=== PATIENT | female | born 1945 | race Hispanic/Latino ===

== ENCOUNTER 2017-09-22 15:24 | Observation (INO) | payer MEDICARE, BC ==
[2017-09-22] MEDS ORDERED: Albuterol-Ipratrop 3 mg / 0.5 (3 ml) UD IH STA (16:27)
--- NOTE | 2017-09-22 16:43 | RAD ---
Date of service: 09/22/2017 HISTORY: cough, shortness of breath COMPARISON: No prior. FINDINGS: LUNGS: No active pulmonary disease. PLEURA: No significant pleural effusion identified, no pneumothorax apparent. CARDIOVASCULAR: Normal. OSSEOUS STRUCTURES: No significant abnormalities. VISUALIZED UPPER ABDOMEN: Normal. OTHER FINDINGS: None. IMPRESSION: No active disease.
--- NOTE | 2017-09-22 16:44 | ED PDOC ---
Arrival/HPI - General Chief Complaint: Shortness Of Breath Time Seen by Provider: 09/22/17 16:17 Historian: Patient - History of Present Illness Narrative History of Present Illness (Text): 09/22/17 18:21 Patient is a 72 yo female, reports that she is a daily smoker, presents to the Emergency Department complaining of nasal congestion for past four days, now associated with cough that has progressively worsened over the past two days. Reports productive sputum. Denies hemoptysis. Denies chest pain with exertion but reports pain in chest with coughing. Also states she has had cramping to her legs over the past several days. Denies calf pain or swelling. Denies abdominal pain. Denies nausea or vomiting. Time/Duration: Prior to Arrival, < week Symptom Onset: Gradual Past Medical History - Infectious Disease Hx of Infectious Diseases: None - Psychiatric Hx Substance Use: No - Surgical History Hx Cholecystectomy: Yes Family/Social History Family/Social History: Unknown Family HX Smoking Status: Heavy Smoker > 10 Cigarettes Daily Hx Alcohol Use: No Hx Substance Use: No Allergies/Home Meds Allergies/Adverse Reactions: Allergies No Known Allergies Allergy (Verified 09/22/17 16:19) Home Medications: Home Meds Medication Instructions Recorded Confirmed No Known Home Med 09/22/17 09/22/17 Review of Systems - Review of Systems Constitutional: Fatigue. absent: Weight Change, Fevers Eyes: absent: Vision Changes ENT: Voice Changes, Sore Throat, Rhinorrhea, Sinus Congestion. absent: Hearing Changes, Epistaxis Respiratory: SOB, Cough, Sputum Cardiovascular: absent: Chest Pain, Palpitations, Edema, Calf Pain, [place] Gastrointestinal: absent: Abdominal Pain, Nausea Genitourinary Female: absent: Dysuria Musculoskeletal: absent: Back Pain Skin: absent: Rash Neurological: absent: Headache, Dizziness, Focal Weakness, Seizure Endocrine: absent: Polyuria Hemo/Lymphatic: absent: Easy Bleeding Psychiatric: absent: Depression Physical Exam Vital Signs Reviewed: Yes Vital Signs Temp Pulse Resp BP Pulse Ox 09/22/17 21:49 98.2 F 71 18 127/60 95 09/22/17 21:13 78 18 127/60 97 09/22/17 18:54 75 18 134/69 100 09/22/17 16:30 18 09/22/17 16:16 99.3 F 100 H 18 132/75 92 L Temperature: Afebrile Pulse: Regular Appearance: Positive for: Non-Toxic Pain Distress: Mild Mental Status: Positive for: Alert and Oriented X 3 - Systems Exam Head: Present: Atraumatic Pupils: Present: PERRL Extroacular Muscles: Present: EOMI Ears: No: Erythema Mouth: Present: Moist Mucous Membranes. No: Drooling, Normal Lips Pharnyx: Present: ERYTHEMA. No: EXUDATE, TONSILS ENLARGED, Uvular Deviation Nose (Internal): Present: Normal Inspection, No Active Bleeding Neck: Present: Normal Range of Motion. No: Meningeal Signs Respiratory/Chest: Present: Wheezes. No: Respiratory Distress, Rhonchi Cardiovascular: Present: Regular Rate and Rhythm, Murmurs Abdomen: No: Tenderness, Distention Back: No: CVA Tenderness Upper Extremity: No: Edema Lower Extremity: Present: Neurovascularly Intact. No: Edema, CALF TENDERNESS Neurological: Present: Motor Func Grossly Intact, Normal Sensory Function Skin: Present: Warm Psychiatric: Present: Alert, Normal Insight, Normal Concentration Medical Decision Making ED Course and Treatment: 09/22/17 17:15 Patient with history of increasing cough for past 4 days. She is hypoxic on exam. She however is not in respiratory distress but has mild diffuse wheezing. Nebulizer ordered. Chest X-ray Dictated By: Polo Lagos MD Date Signed: 09/22/17 1641 IMPRESSION: No active disease. 09/22/17 18:33 Patient has no chest pain with exertion. Initial ddimer and troponin unremarkable. Patient has no calf edema noted. No ocp use. No known hx of cancer. No hx of prolonged immobilization. Patient with no fever or hempotysis. No prior records or EKG available, although patient with no exertional chest pain. Daughter present, supplements history. States she has PMD in her hometown and will follow-up. Ultrasound pending. LIMITATIONS OF CHEST XRAY and labs reviewed. Risks of smoking and cancer reviewed with patient and family. 09/22/17 18:51 Preliminary ultrasound report negative for DVT. 09/22/17 19:17 Treatment plan reviewed with patient and daughter. Nebulizers ordered. Case endorsed to Dr. Landry at 1900 on 09/22/17 for re-evaluation, dispostion , - Lab Interpretations Microbiology Results: Microbiology Results 09/22/17 17:45 Blood Blood Culture - Preliminary NO GROWTH AFTER 24 HOURS 09/22/17 17:25 Blood Blood Culture - Preliminary NO GROWTH AFTER 24 HOURS Lab Results: 09/22/17 17:25 09/22/17 17:25 Lab Results 09/22/17 20:24: Urine Color Yellow, Urine Appearance Clear, Urine pH 6.0, Ur Specific [place] 1.010, Urine Protein Negative, Urine Glucose (UA) Negative, Urine Ketones Negative, Urine Blood Trace-intact H, Urine Nitrate Negative, Urine Bilirubin Negative, Urine Urobilinogen 0.2, Ur Leukocyte Esterase Negative , Urine RBC 1 - 3, Urine WBC 0 - 2, Ur Epithelial Cells 0 - 2 09/22/17 19:56: pCO2 46 H, pO2 92.0, HCO3 29.2 H, ABG pH 7.41, ABG Total CO2 30.6 H, ABG O2 Saturation 99.1 H, ABG O2 Content 16.4, ABG Base Excess 3.9 H, ABG Hemoglobin 12.1, ABG Carboxyhemoglobin 2.5 H, POC ABG HHb (Measured) 0.9, ABG Methemoglobin 1.0, ABG O2 Capacity 16.5, Hgb O2 Saturation 95.6, FiO2 21.0 09/22/17 17:25: Sodium 141, Potassium 3.7, Chloride 98, Carbon Dioxide 31, Anion Gap 16, BUN 8, Creatinine 0.7, Est GFR ( Amer) > 60, Est GFR (Non- Af Amer) > 60, Random Glucose 110, Calcium 9.4, Total Bilirubin 0.5, AST 29, ALT 23, Alkaline Phosphatase 70, Lactate Dehydrogenase 569, Total Creatine Kinase 90, Troponin I < 0.01, NT-Pro-B Natriuret Pep 128, Total Protein 8.3, Albumin 4.9 H, Globulin 3.3, Albumin/Globulin Ratio 1.5 09/22/17 17:25: PT 11.6, INR 1.00, APTT 29.4, D-Dimer, Quantitative 231 09/22/17 17:25: WBC 7.7, RBC 4.58, Hgb 13.6, Hct 40.3, MCV 88.0, MCH 29.7, MCHC 33.7, RDW 13.4, Plt Count 246, MPV 9.2, Gran % 72.8 H, Lymph % (Auto) 16.7 L, [place] % (Auto) 7.6 H, Eos % (Auto) 2.5, Baso % (Auto) 0.4, Gran # 5.64, Lymph # ( Auto) 1.3, [place] # (Auto) 0.6, Eos # (Auto) 0.2, Baso # (Auto) 0.03 - RAD Interpretation Radiology Orders: 09/22/17 16:25 CHEST PORTABLE [RAD] Stat 09/22/17 16:26 DUPLEX LOWER EXTRM VEIN BILAT [US] Stat [employer] Assistant Manager: Radiologist - EKG Interpretation EKG Interpretation (Text): 09/22/17 18:30 EKG at 17:47 normal sinus rhythm rate of 83, anteroseptal infarct, age undetermined Interpreted by ED Physician: Yes Type: 12 lead EKG - Medication Orders Current Medication Orders: Acetaminophen (Tylenol 325mg Tab) 650 mg PO Q6H PRN PRN Reason: Fever >100.4 F Albuterol/Ipratropium (Duoneb 3 Mg/0.5 Mg (3 Ml) Ud) 3 ml IH Q4H PRN PRN Reason: Shortness of Breath Azithromycin (Zithromax) 250 mg PO DAILY PAYAL PRN Reason: Protocol Last Admin: 09/23/17 12:19 Dose: 250 mg Guaifenesin/Dextromethorphan (Robitussin Dm) 5 ml PO Q6H PAYAL Last Admin: 09/24/17 05:40 Dose: 5 ml Ceftriaxone Sodium (Rocephin 1 Gram Ivpb) 1 gm in 100 mls @ 100 mls/hr IVPB DAILY PAYAL PRN Reason: Protocol Levalbuterol HCl (Xopenex) 0.63 mg IH [id number] [facility] Last Admin: 09/24/17 07:44 Dose: 0.63 mg Methylprednisolone (Solu-Medrol) 30 mg IV Q8H PAYAL Last Admin: 09/24/17 05:40 Dose: 30 mg eMAR Start Stop Document 09/24/17 05:40 CDE (Rec: 09/24/17 05:40 CDE [id number]) Intravenous Solution Start Date 09/24/17 Start Time 05:40 End Date 09/24/17 End time 05:40 Total Infusion Time 0 Ondansetron HCl (Zofran Inj) 4 mg IVP Q6H PRN PRN Reason: Nausea/Vomiting Discontinued Medications Albuterol/Ipratropium (Duoneb 3 Mg/0.5 Mg (3 Ml) Ud) 3 ml IH STAT STA Stop: 09/22/17 16:28 Last Admin: 09/22/17 19:14 Dose: Albuterol/Ipratropium (Duoneb 3 Mg/0.5 Mg (3 Ml) Ud) 3 ml IH Q15M PAYAL Stop: 09/22/17 19:31 Last Admin: 09/22/17 19:55 Dose: 3 ml Ceftriaxone Sodium (Rocephin 1 Gram Ivpb) 1 gm in 100 mls @ 200 mls/hr IV ONCE STA PRN Reason: Protocol Stop: 09/22/17 21:23 Last Admin: 09/22/17 21:39 Dose: 200 mls/hr eMAR Start Stop Document 09/22/17 21:39 HI (Rec: 09/22/17 21:40 [email or web address] Intravenous Solution Start Date 09/22/17 Start Time 21:40 Azithromycin (Zithromax 500mg In Ns) 500 mg in 250 mls @ 166.667 mls/hr IV STAT STA PRN Reason: Protocol Stop: 09/22/17 22:23 Last Admin: 09/22/17 22:27 Dose: 166.667 mls/hr eMAR Start Stop Document 09/22/17 22:27 CDE (Rec: 09/22/17 22:27 CDE [id number]) Intravenous Solution Start Date 09/22/17 Start Time 22:27 End Date 09/22/17 End time 23:57 Total Infusion Time 90 Methylprednisolone (Solu-Medrol) 125 mg IVP ONCE ONE Stop: 09/22/17 21:03 Last Admin: 09/22/17 21:39 Dose: 125 mg IVP Administration Document 09/22/17 21:39 HI (Rec: 09/22/17 21:39 [email or web address] Charges for Administration # of IVP Administrations 1 Disposition/Present on Arrival - Present on Arrival Any Indicators Present on Arrival: No History of DVT/PE: No History of Uncontrolled Diabetes: No Urinary Catheter: No History of Decub. Ulcer: No History Surgical Site Infection Following: None - Disposition Have Diagnosis and Disposition been Completed?: Yes Diagnosis: COPD exacerbation Disposition: HOSPITALIZED Disposition Time: 19:00 Patient Plan: Admission Patient Problems: Current Active Problems Problem Status Onset COPD exacerbation Acute Condition: STABLE
[2017-09-22 17:57] LABS: BASO # 0.03 K/mm3 (0.0-2.0); BASO % 0.4 % (0.0-3.0); EOS # 0.2 (0.0-0.7); EOS % 2.5 % (1.5-5.0); GRAN # 5.64 (1.4-6.5); GRAN % 72.8 % (50.0-68.0); HEMOGLOBIN 13.6 g/dL (12.0-16.0); LYMPH # 1.3 (1.2-3.4); LYMPH % 16.7 % (22.0-35.0); MEAN CORPUSCULAR HEMOGLOBIN 29.7 pg (25.0-35.0); MEAN CORPUSCULAR HGB CONC 33.7 g/dl (31.0-37.0); MEAN PLATELET VOLUME 9.2 fl (7.0-11.0); MONO # 0.6 (0.1-0.6); MONO % 7.6 % (1.0-6.0); RBC 4.58 10^6/uL (3.5-6.1); RED CELL DISTRIBUTION WIDTH 13.4 % (11.5-14.5); WHITE BLOOD COUNT 7.7 10^3/ul (4.5-11.0)
[2017-09-22 18:02] LABS: ALB/GLOB RATIO 1.5 (1.1-1.8); ALBUMIN 4.9 g/dL (3.0-4.8); ALT/SGPT 23 U/L (7-56); AST/SGOT 29 U/L (14-36); BLOOD UREA NITROGEN 8 mg/dL (7-21); CALCIUM 9.4 mg/dL (8.4-10.5); GFR AFRICAN-AMERICAN > 60; GFR NON-AFRICAN AMERICAN > 60
[2017-09-22 18:08] LABS: PARTIAL THROMBOPLASTIN TIME 29.4 Seconds (25.1-36.5); PROTHROMBIN TIME 11.6 SECONDS (9.4-12.5)
[2017-09-22 18:14] LABS: B-TYPE NATRIURETIC PEPTIDE 128 pg/mL (0-450); TROPONIN I < 0.01 ng/mL
[2017-09-22] MEDS: Albuterol-Ipratrop 3 mg / 0.5 (3 ml) UD IH SCH ×3 (19:14→19:55)
[2017-09-22 19:59] LABS: ARTERIAL BLOOD GAS HCO3 29.2 mmol/L (21-28); ARTERIAL BLOOD GAS HEMOGLOBIN 12.1 g/dL (11.7-17.4); ARTERIAL BLOOD GAS O2 CAPACITY 16.5 mL/dl (16-24); ARTERIAL BLOOD GAS O2 CONTENT 16.4 ML/dl (15-23); ARTERIAL BLOOD GAS O2 SAT 99.1 % (95-98); ARTERIAL BLOOD GAS PCO2 46 mm/Hg (35-45); ARTERIAL BLOOD GAS PH 7.41 (7.35-7.45); ARTERIAL BLOOD GAS TCO2 30.6 mmol.L (22-28)
--- NOTE | 2017-09-22 20:08 | ED PDOC ---
Physical Exam Vital Signs Reviewed: Yes Vital Signs Temp Pulse Resp BP Pulse Ox 09/22/17 18:54 75 18 134/69 100 09/22/17 16:30 18 09/22/17 16:16 99.3 F 100 H 18 132/75 92 L Temperature: Afebrile Blood Pressure: Normal Pulse: Tachycardic Respiratory Rate: Normal Appearance: Positive for: Well-Appearing, Non-Toxic, Comfortable Pain Distress: None Mental Status: Positive for: Alert and Oriented X 3 Medical Decision Making ED Course and Treatment: 09/22/17 19:32: Case endorsed to me by Dr. Duncan. Patient presented to the emergency department complaining of cough, chest discomfort when coughing, and low O2 saturation. Patient was evaluated with labs EKG, Chest X-ray all of which were negative. Patient currently receiving nebulizer treatments. I was asked to reassess patient following treatment. Patient is not experiencing any shortness of breath currently. 09/22/17 21:[address] Mcgee who is aware and agrees with the plan. Accepts patient into her service to be admitted for further management. Nebulizer treatment, steroids, and antibiotics given. - Lab Interpretations Lab Results: 09/22/17 17:25 09/22/17 17:25 Lab Results 09/22/17 20:24: Urine Color Yellow, Urine Appearance Clear, Urine pH 6.0, Ur Specific [place] 1.010, Urine Protein Negative, Urine Glucose (UA) Negative, Urine Ketones Negative, Urine Blood Trace-intact H, Urine Nitrate Negative, Urine Bilirubin Negative, Urine Urobilinogen 0.2, Ur Leukocyte Esterase Negative , Urine RBC Pending, Urine WBC Pending 09/22/17 19:56: pCO2 46 H, pO2 92.0, HCO3 29.2 H, ABG pH 7.41, ABG Total CO2 30.6 H, ABG O2 Saturation 99.1 H, ABG O2 Content 16.4, ABG Base Excess 3.9 H, ABG Hemoglobin 12.1, ABG Carboxyhemoglobin 2.5 H, POC ABG HHb (Measured) 0.9, ABG Methemoglobin 1.0, ABG O2 Capacity 16.5, Hgb O2 Saturation 95.6, FiO2 21.0 09/22/17 17:25: Sodium 141, Potassium 3.7, Chloride 98, Carbon Dioxide 31, Anion Gap 16, BUN 8, Creatinine 0.7, Est GFR ( Amer) > 60, Est GFR (Non- Af Amer) > 60, Random Glucose 110, Calcium 9.4, Total Bilirubin 0.5, AST 29, ALT 23, Alkaline Phosphatase 70, Lactate Dehydrogenase 569, Total Creatine Kinase 90, Troponin I < 0.01, NT-Pro-B Natriuret Pep 128, Total Protein 8.3, Albumin 4.9 H, Globulin 3.3, Albumin/Globulin Ratio 1.5 09/22/17 17:25: PT 11.6, INR 1.00, APTT 29.4, D-Dimer, Quantitative 231 09/22/17 17:25: WBC 7.7, RBC 4.58, Hgb 13.6, Hct 40.3, MCV 88.0, MCH 29.7, MCHC 33.7, RDW 13.4, Plt Count 246, MPV 9.2, Gran % 72.8 H, Lymph % (Auto) 16.7 L, [place] % (Auto) 7.6 H, Eos % (Auto) 2.5, Baso % (Auto) 0.4, Gran # 5.64, Lymph # ( Auto) 1.3, [place] # (Auto) 0.6, Eos # (Auto) 0.2, Baso # (Auto) 0.03 - RAD Interpretation Radiology Orders: 09/22/17 16:25 CHEST PORTABLE [RAD] Stat 09/22/17 16:26 DUPLEX LOWER EXTRM VEIN BILAT [US] Stat - Medication Orders Current Medication Orders: Albuterol/Ipratropium (Duoneb 3 Mg/0.5 Mg (3 Ml) Ud) 3 ml IH Q4H PRN PRN Reason: Shortness of Breath Ceftriaxone Sodium (Rocephin 1 Gram Ivpb) 1 gm in 100 mls @ 200 mls/hr IV ONCE STA PRN Reason: Protocol Stop: 09/22/17 21:23 Azithromycin (Zithromax 500mg In Ns) 500 mg in 250 mls @ 166.667 mls/hr IV STAT STA PRN Reason: Protocol Stop: 09/22/17 22:23 Methylprednisolone (Solu-Medrol) 125 mg IVP ONCE ONE Stop: 09/22/17 21:03 Discontinued Medications Albuterol/Ipratropium (Duoneb 3 Mg/0.5 Mg (3 Ml) Ud) 3 ml IH STAT STA Stop: 09/22/17 16:28 Last Admin: 09/22/17 19:14 Dose: Albuterol/Ipratropium (Duoneb 3 Mg/0.5 Mg (3 Ml) Ud) 3 ml IH Q15M PAYAL Stop: 09/22/17 19:31 Last Admin: 09/22/17 19:45 Dose: 3 ml - Scribe Statement The provider has reviewed the documentation as recorded by the Jesus Burnett Provider Scribe Attestation: All medical record entries made by the Scribe were at my direction and personally dictated by me. I have reviewed the chart and agree that the record accurately reflects my personal performance of the history, physical exam, medical decision making, and the department course for this patient. I have also personally directed, reviewed, and agree with the discharge instructions and disposition. Disposition/Present on Arrival - Present on Arrival Any Indicators Present on Arrival: No History of DVT/PE: No History of Uncontrolled Diabetes: No Urinary Catheter: No History of Decub. Ulcer: No History Surgical Site Infection Following: None - Disposition Have Diagnosis and Disposition been Completed?: Yes Diagnosis: COPD exacerbation Disposition: HOSPITALIZED Disposition Time: 21:08 Patient Problems: Current Active Problems Problem Status Onset COPD exacerbation Acute Condition: FAIR Referrals: Naman Edward MD [Primary Care Provider] - Follow up with primary Forms: [employer] ([place])
[2017-09-22 20:51] LABS: URINE BILIRUBIN NEGATIVE (NEGATIVE); URINE BLOOD TRACE-INTACT (NEGATIVE); URINE GLUCOSE (UA) NEGATIVE (NEGATIVE); URINE LEUKOCYTE ESTERASE NEGATIVE Leu/uL (NEGATIVE); URINE PROTEIN NEGATIVE mg/dL (<30 mg/dL); URINE UROBILINOGEN 0.2 E.U./dL (<1 E.U./dL)
[2017-09-22 20:52] LABS: URINE APPEARANCE CLEAR (CLEAR); URINE COLOR YELLOW (YELLOW)
[2017-09-22] MEDS ORDERED: Azithromycin 500MG/NS 250ml 500 MG/250 ML BAG IV STA (20:54)
[2017-09-22] MEDS ORDERED: cefTRIAXone 1 gm 1 GM/100 ML BAG IV STA (20:54)
[2017-09-22] MEDS ORDERED: Albuterol-Ipratrop 3 mg / 0.5 (3 ml) UD IH PRN (21:05)
[2017-09-22 21:24] LABS: URINE EPITHELIAL CELLS 0 - 2 /hpf (0-5); URINE WBC 0 - 2 /hpf (0-6)
[2017-09-23] MEDS: MethylPREDNISolone 40 mg Vial IV SCH ×2 (12:19→21:16)
[2017-09-23] MEDS: guaiFENesin DM 100 mg-10 mg/5 ml UD PO SCH ×2 (12:19→18:06)
[2017-09-23] MEDS: Levalbuterol 0.63 MG/3 ML Inhal Soln UD IH SCH ×2 (13:24→19:24)
--- NOTE | 2017-09-23 14:34 | US ---
HISTORY: Leg pain and swelling. Evaluate for DVT PHYSICIAN(S): Daniel Curtis MD. TECHNIQUE: Duplex sonography and color-flow Doppler with graded compression were used to evaluate the deep venous systems of both lower extremities. FINDINGS: The visualized deep venous systems of both lower extremities are sonographically normal and compressible. Normal wave forms and augmentation are seen. There is no sonographic evidence for deep venous thrombosis in the visualized segments of both lower extremities. IMPRESSION: No sonographic evidence for deep venous thrombosis in the visualized segments of both lower extremities.
--- NOTE | 2017-09-23 16:02 | HP ---
DATE OF EXAM: 09/23/2017 HISTORY OF PRESENT ILLNESS: This 72-year-old female was examined at her bedside on the cardiac [place] in the presence of her daughter, Kristy, and grandson, Andrea. This case was reviewed in detail with her nurse, Barbra Hernandez, registered nurse. The patient presents to the [facility] ER with a 3-to 4-day complaint of shortness of breath, cough, and yellow productive sputum. She was seen earlier last evening at a local urgent care center where they recommended she come to the [facility] ER for further evaluation of shortness of breath, hypoxemia, and low O2 sats. The patient in the Emergency Room complained of bilateral lower leg cramping and pain, underwent venous Dopplers of both lower extremities, which were negative for DVT and had a negative D-dimer study. She was complaining of cough and shortness of breath, was given dual nebulizer therapy and IV Solu-Medrol; however, she was still noted to be wheezing and was admitted for further evaluation of the above. On questioning of this patient, SHE DENIES ANY ALLERGIES TO MEDICATION. She states she takes no chronic medication and has no chronic illnesses. She states she is a one-pack per day cigarette smoker for many years and is status post appendectomy in her distant past. FAMILY HISTORY: None significant. SOCIAL HISTORY: She is a smoker, non drinker, no IV drug misuse. 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 HEAD: No headache or seizure. EYES: No change in visual acuity. EARS: No hearing loss. THROAT: No swallowing difficulty. NECK: No stiffness. CARDIAC: No chest pain or palpitation. PULMONARY: She had a cough with yellow productive sputum and had expiratory wheezing. GASTROINTESTINAL: No hematemesis. No melena. GENITOURINARY: No dysuria. SKIN: No rash. VASCULAR: No claudication. PSYCHOLOGICAL: No anxiety. NEUROLOGICAL: No knowledge of stroke. PHYSICAL EXAMINATION: VITAL SIGNS: She was in a normal sinus rhythm on the qa intern with a temperature of 98.1, respirations 17, pulse 75, and blood pressure 135/71. Pulse ox 98% on 2 liters nasal O2. HEENT: Head: Normocephalic, atraumatic. Eyes: No icterus. Ears: Clear. Throat: Noninjected. NECK: Supple. HEART: Regular S1, S2. No pathological rubs, murmurs, or gallops. LUNGS: With expiratory wheezing throughout both posterior lung andres. Occasional rhonchi that cleared with coughing. ABDOMEN: Soft. No palpable organomegaly. EXTREMITIES: No clubbing, no cyanosis, no edema. SKIN: Without rash. NEUROLOGICAL: Intact. PSYCHOLOGICAL: Alert and oriented x3. NEUROLOGIC: Grossly intact. LABORATORY DATA: White count 7700, hemoglobin 13.6, hematocrit 40.3, platelets 246,000. PT/INR 1, PTT 29.4. D-dimer 231 which is within normal limits. Sodium 141, K 3.7, chloride 98, bicarb 31, BUN 8, creatinine 0.7, random blood sugar 110, calcium 9.4. Bilirubin 0.5, AST 29, ALT , alkaline phosphatase 70. CPK 90. Troponin less than 0.01. Urinalysis was unremarkable. Chest x-ray was reviewed. It showed no active pulmonary disease, no pleural effusion, no pulmonary infiltrate, no congestive heart failure, heart size normal. EKG reportedly showed normal sinus rhythm. Venous Dopplers reportedly showed no evidence of DVT. IMPRESSION: A 72-year-old female with asthmatic bronchitis, rule out exacerbation of chronic obstructive pulmonary disease with strong history of cigarette smoking. PLAN: As discussed with the patient, daughter, grandson, and nursing, will be to await blood and urine culture that have been sent and to continue Robitussin DM 5 mL p.o. every 6 hours, Rocephin 1 g IV every 24 hours, Solu-Medrol 30 mg IV every 8 hours, Xopenex inhalational therapy 0.63 mg every 6 hours, Zithromax 250 mg p.o. daily, Zofran 4 mg IV every 6 hours p.r.n. nausea or vomiting, and Tylenol 650 p.o. every 6 hours p.r.n. temperature greater than 101. She continues on 2 liters nasal O2. She is ordered to have a heart-healthy diet. She is encouraged to ambulate with family and as discussed with the patient and family at bedside when she is oxygenating adequately and no longer wheezing, she will be switched to oral agents and then followed as an outpatient. Greater than 75 minutes was spent in the care, management, review of labs, orders, x-rays, and discussion of this patient with nursing, family, herself, and emergency room physicians. She was given smoking cessation counselling. All questions were answered. Kay Mcgee MD [email or web address]
--- NOTE | 2017-09-23 17:11 | CARD ---
APPROVED REPORT Date of service: 09/22/2017 EKG Measurement Heart [id number] <Conclusion> Normal sinus rhythm Possible Left atrial enlargement Anteroseptal infarct, age undetermined Abnormal ECG
[2017-09-24] MEDS: guaiFENesin DM 100 mg-10 mg/5 ml UD PO SCH ×3 (00:40→11:51)
[2017-09-24] MEDS: Levalbuterol 0.63 MG/3 ML Inhal Soln UD IH SCH ×3 (01:09→14:03)
[2017-09-24 03:01] VITALS: RESP 20
[2017-09-24] MEDS: MethylPREDNISolone 40 mg Vial IV SCH ×2 (05:40→11:51)
[2017-09-24] MEDS ORDERED: cefTRIAXone 1 gm 1 GM/100 ML BAG IVPB SCH (10:00)
[2017-09-24 10:25] VITALS: O2SAT 93
[2017-09-24 12:58] VITALS: BP 140/99; PULSE 84; TEMP 97.3
--- NOTE | 2017-09-25 02:39 | DS ---
FINAL DIAGNOSIS: Asthmatic bronchitis. DISPOSITION: Home. FOLLOWUP: Follow up in my office 10/01/2017, at 1:30 p.m. DISCHARGE MEDICATIONS: Robitussin DM 5 mL p.o. every 6, Medrol Dosepak #1 as directed, ProAir inhaler 1 puff every 6 hours p.r.n. and Zithromax, Z-Adithya #1. SUMMARY: This 72-year-old female was admitted to the [facility] with asthmatic bronchitis in the setting of chronic obstructive pulmonary disease and history of longstanding cigarette smoking. Because of hypoxemia with persistent cough and wheezing, she was admitted and treated with parenteral antibiotics, IV Solu-Medrol, Xopenex inhalational therapy and at the time of discharge, had vital signs showing temperature 97.6, respirations 20, pulse 86 and blood pressure 132/70 with a pulse ox of 94% room air. Her lungs were clear to auscultation at the time of discharge. Her labs showed white count 7700, hemoglobin 13.6, hematocrit 40.3, platelets 246,000. Sodium 141, K 3.7, chloride 98, bicarb 31, BUN 8, creatinine 0.7, random blood sugar 110. All liver function testings were normal including bilirubin 0.5, AST 29, ALT 23 and alk phos 70. Her CPK was 90. Her troponin was less than 0.01. BNP was 128. Urinalysis was unremarkable. Blood and urine culture showed no growth at 24 hours and her chest x-ray was reviewed and it showed no evidence of an infiltrate, congestive heart failure or pleural effusion. The patient was cleared for discharge to home. All of her instructions were reviewed in detail with herself and nurse, Mariaa Hope, registered nurse. The patient will be instructed by respiratory therapy on the proper use of ProAir inhaler and she has been advised for any change in signs and symptoms to present directly to [facility] ER and was once again counseled on smoking cessation. Kay Mcgee MD
== END 2017-09-24 15:19 | disposition home or self-care (01) ==
LOC: ED 15:24 → ERH 21:04 → 2RNO 22:03
PROVIDERS: ADMIT Internal Medicine; ATTEND Internal Medicine
DX: J44.1 Chronic obstructive pulmonary disease with (acute) exacerbation (principal); F17.210 Nicotine dependence, cigarettes, uncomplicated; R09.02 Hypoxemia
CPT/HCPCS: 71045; 80053; 81001; 82550; 82803; 83615; 83880; 84484; 85025; 85378; 85610; 85730; 87040; 87086; 93005; 93970; 94640; 94760; 96374; 99285; G0378; J0456; J0696; J2920; J2930